=== PATIENT | female | born 1990 | race African-American/Black ===

== ENCOUNTER 2019-05-19 17:29 | Emergency (ER) | payer BC ==
[2019-05-19 17:42] VITALS: BMI 27.9
--- NOTE | 2019-05-19 17:43 | PDOC ---
Rapid Medical Evaluation Time Seen by Provider: 05/19/19 17:40 Medical Evaluation: 05/19/19 17:40 I have performed a brief in-person evaluation of this patient. The patient presents with a chief complaint of: "I think I am having a miscarriage". 13wks F w/ (+)lower abdominal cramping w/ vaginal bleeding started 2 hours ago, does not have a pad on. NO clots. LMP February 24. ( +)documented IUP yesterday, everything was ok. I have ordered the following: Labs, UA, TVS The patient will proceed to the ED for further evaluation. Discharge Disposition - Diagnosis Vaginal bleeding in - Referrals - Patient Instructions - Post Discharge Activity
[2019-05-19 18:27] LABS: BASO % 0.5 % (0-2.0); EOS % 1.3 % (0-4.5); HEMATOCRIT 34.9 % (32.4-45.2); HEMOGLOBIN 11.6 GM/dL (10.7-15.3); LYMPH % 21.5 % (8-40); MCHC 33.3 g/dl (32.0-36.0); MEAN PLT VOLUME 9.7 fl (7.5-11.1); MONO % 6.8 % (3.8-10.2); NEUT % 69.9 % (42.8-82.8); PLATELET COUNT 223 K/MM3 (134-434); RBC 3.87 M/mm3 (3.60-5.2); RDW 14.3 % (11.6-15.6); WHITE BLOOD COUNT 12.6 K/mm3 (4.0-10.0)
[2019-05-19 19:30] LABS: ALBUMIN 3.5 g/dl (3.4-5.0); BILIRUBIN,TOTAL 0.2 mg/dL (0.2-1); CALCIUM 8.3 mg/dL (8.5-10.1); CREATININE 0.6 mg/dL (0.55-1.3); POTASSIUM 3.8 mmol/L (3.5-5.1); TOT PROT 6.8 g/dl (6.4-8.2)
[2019-05-19] MEDS ORDERED: RHO(D) IMMUNE GLOBULIN 1,500 UNIT DISP.SYRIN IM ONE (20:04)
--- NOTE | 2019-05-19 20:13 | PDOC ---
History of Present Illness - General Chief Complaint: Vaginal Bleeding Stated Complaint: POSS MISCARRIAGE Time Seen by Provider: 05/19/19 17:40 History Source: Patient Exam Limitations: No Limitations - History of Present Illness Initial Comments: 05/19/19 20:06 28YOF who is (1 prior elective , and ~13 weeks by US and LMP) who p/w lower abdominal cramping and bright red vaginal bleeding without clots x a few hours. States she had a normal OB US performed yesterday showing in the uterus. She has required a Rhogam shot before for a prior . Denies any additional symptoms - no f/c/n/v/d/c, dysuria, or other symptoms. Past History - Past Medical History Allergies/Adverse Reactions: Allergies Allergy/AdvReac Type Severity Reaction Status Date / Time No Known Allergies Allergy Verified 05/19/19 17:42 Home Medications: Ambulatory Orders Cephalexin [Keflex] 500 mg PO BID #10 capsule 05/19/19 COPD: No - Psycho Social/Smoking Cessation Hx Smoking History: Never smoked Hx Alcohol Use: No Drug/Substance Use Hx: No Review of Systems - Review of Systems Able to Perform ROS?: Yes Comments:: 05/19/19 20:38 GEN: no fever, chills, night sweats, generalized weakness, malaise, or unintentional weight change HEENT: no ear pain, congestion, sore throat, rhinorrhea, nosebleed, vision change, or eye pain CV: no chest pain, palpitations, lightheadedness, syncope, edema, or exercise intolerance RESP: no cough, wheezing, or SOB GI: abdominal cramping, no nausea, vomiting, diarrhea, constipation, appetite change, or white/black/bloody stool : vaginal bleeding, no dysuria, frequency, incontinence, retention, pruritis, or discharge MSK: no muscle weakness or pain, no muscle wasting, no joint swelling or pain NEURO: no headache, seizure, vertigo, imbalance, numbness, tingling, focal weakness, or difficulty walking/talking PSYCH: no insomnia, behavior change, SI, HI, or substance use SKIN: no prutitis, excessive dryness, jaundice, rash, cuts, or unexplained bruises ROS otherwise negative except as noted in HPI *Physical Exam - Vital Signs Last Vital Signs Temp Pulse Resp BP Pulse Ox 98.1 F 85 16 112/72 100 05/19/19 17:39 05/19/19 17:39 05/19/19 17:39 05/19/19 17:39 05/19/19 17:39 - Physical Exam Comments: 05/19/19 20:39 GENERAL: well-appearing, A/Ox4, no distress, answers questions appropriately HEENT: PERRLA, EOMI, moist mucous membranes NECK/BACK: no midline ttp, no spinal stepoff or deformity, no hematoma, full ROM , neck supple CARDIOVASCULAR: regular rate/rhythm, normal S1S2, no MGR, strong peripheral pulses, capillary refill <2 seconds, extremities wwp, no edema LUNGS/RESPIRATORY: no respiratory distress, CTAB GI/ABDOMEN: symmetric shzp-py-zhed, normoactive BS, soft, minimal suprapubic ttp , no midline pulsatile masses : no CVA tenderness, pelvic normal externally, speculum with moderate medium red blood without clots, bimanual without tenderness but with soft cervix and fingertip os. EXTREMITIES: no muscle atrophy, no acute deformity SKIN: warm and dry, no pallor, no jaundice, no rash, no bruising, no skin breakdown, no cuts, no lesions NEUROLOGICAL: GCS 15, CN II-XII grossly intact, 5/5 strength proximally and distally, no facial droop ED Treatment Course - LABORATORY CBC & Chemistry Diagram: 05/19/19 17:59 05/19/19 17:59 - ADDITIONAL ORDERS Additional order review: Laboratory Results 05/19/19 05/19/19 17:59 17:59 Sodium 138 Potassium 3.8 Chloride 105 Carbon Dioxide 25 Anion Gap 9 BUN 9.0 Creatinine 0.6 Est GFR (CKD-EPI)AfAm 144.78 Est GFR (CKD-EPI)NonAf 124.92 Random Glucose 76 Calcium 8.3 L Total Bilirubin 0.2 AST 10 L ALT 13 Alkaline Phosphatase 59 Total Protein 6.8 Albumin 3.5 Beta HCG, Quant 213474.5 Blood Type O NEGATIVE Antibody Screen Negative 05/19/19 17:59 RBC 3.87 MCV 90.0 MCHC 33.3 RDW 14.3 MPV 9.7 Neutrophils % 69.9 Lymphocytes % 21.5 Monocytes % 6.8 Eosinophils % 1.3 Basophils % 0.5 Medical Decision Making - Medical Decision Making 05/19/19 20:41 First trimester female p/w vaginal bleeding and lower abdominal pain at 13 wks gestation. Initial Vital Signs Temp Pulse Resp BP Pulse Ox 98.1 F 85 16 112/72 100 05/19/19 17:39 05/19/19 17:39 05/19/19 17:39 05/19/19 17:39 05/19/19 17:39 Exam: As noted in Physical Exam section. DDX IBNLT: threatened/inevitable/incomplete/complete/septic , ectopic, PID, TOA/cervicitis, endometritis, ruptured ovarian cyst, ovarian torsion, malignancy, menorrhagia, endometriosis, rectal bleed, hematuria, constipation, fibroids, etc. W/U ordered: Labs as noted below, TVUS. TX ordered: None initially Laboratory Tests 05/19/19 05/19/19 05/19/19 17:59 17:59 17:59 WBC 12.6 H RBC 3.87 Hgb 11.6 Hct 34.9 MCV 90.0 MCH 30.0 MCHC 33.3 RDW 14.3 Plt Count 223 MPV 9.7 Absolute Neuts (auto) 8.8 H Neutrophils % 69.9 Lymphocytes % 21.5 Monocytes % 6.8 Eosinophils % 1.3 Basophils % 0.5 Nucleated RBC % 0 Sodium 138 Potassium 3.8 Chloride 105 Carbon Dioxide 25 Anion Gap 9 BUN 9.0 Creatinine 0.6 Est GFR (CKD-EPI)AfAm 144.78 Est GFR (CKD-EPI)NonAf 124.92 Random Glucose 76 Calcium 8.3 L Total Bilirubin 0.2 AST 10 L ALT 13 Alkaline Phosphatase 59 Total Protein 6.8 Albumin 3.5 Beta HCG, Quant 870685.5 Urine Color Urine Appearance Urine pH Ur Specific Sarles Urine Protein Urine Glucose (UA) Urine Ketones Urine Blood Urine Nitrite Urine Bilirubin Urine Urobilinogen Ur Leukocyte Esterase Urine WBC (Auto) Urine RBC (Auto) Urine Casts (Auto) U Epithel Cells (Auto) Urine Bacteria (Auto) Blood Type O NEGATIVE Antibody Screen Negative Unit Expiration Date 8999080205/19/19 21:00 WBC RBC Hgb Hct MCV MCH MCHC RDW Plt Count MPV Absolute Neuts (auto) Neutrophils % Lymphocytes % Monocytes % Eosinophils % Basophils % Nucleated RBC % Sodium Potassium Chloride Carbon Dioxide Anion Gap BUN Creatinine Est GFR (CKD-EPI)AfAm Est GFR (CKD-EPI)NonAf Random Glucose Calcium Total Bilirubin AST ALT Alkaline Phosphatase Total Protein Albumin Beta HCG, Quant Urine Color Red Urine Appearance Turbid Urine pH 6.0 Ur Specific Sar[place] 1.028 Urine Protein 3+ H Urine Glucose (UA) Negative Urine Ketones Negative Urine Blood 3+ H Urine Nitrite Positive H Urine Bilirubin 2+ H Urine Urobilinogen 0.2 Ur Leukocyte Esterase 2+ H Urine WBC (Auto) 2 Urine RBC (Auto) 5016 Urine Casts (Auto) 142 U Epithel Cells (Auto) 8.4 Urine Bacteria (Auto) 14.6 Blood Type Antibody Screen Unit Expiration Date The Pt require Rhogam and is given this dose after second T&S shows O- blood type. She has a UTI and is given first dose Keflex, remainder sent to her pharmacy. Workup is not concerning for emergency-level pathology at this time. The Pt is appropriate for discharge home w/ close outpatient f/u. The Pt is comfortable with this plan and will follow up with their primary care provider in 1-3 days. She will also follow up with her on Wednesday (pt states has [facility] already in [place] where she lives). She will take primarily Tylenol for pain. Specific return precautions are discussed and they will come back to the ER if necessary. Discharge - Discharge Information Problems reviewed: Yes Clinical Impression/Diagnosis: Vaginal bleeding in , Threatened Condition: Stable Disposition: HOME - Admission No - Additional Discharge Information Prescriptions: Cephalexin [Keflex] 500 mg PO BID #10 capsule - Follow up/Referral - Patient Discharge Instructions Patient Printed Discharge Instructions: DI for Vaginal Bleeding During Additional Instructions: You were seen in the ER for vaginal bleeding in . We did an exam, laboratory work on your blood and urine, and an ultrasound. After our assessment , we believe you are having what is called a "threatened miscarriage" which means there is some risk that a miscarriage will happen, but for now the is viable and the heart rate was normal. We gave you the Rhogam shot that you needed because of your blood type and the bleeding in . You are not having a medical emergency at this time, and you are safe to go home. Please take Tylenol for any mild-moderate pain. 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 Call their clinic [facility], tell them you were seen in the ER, and tell them you need an appointment. Please come back to the ER at any time (24 hours a day) for any new or worsening symptoms, like worsening pelvic pain, discharge, high fever, headache, seizure, fainting, anemia, large amount of blood loss, or other symptoms. If you are having severe or life threatening symptoms, or symptoms that make it unsafe to drive or have someone drive you, please call 911. You have a bladder infection as well, and we gave you the first dose of antibiotics here and sent the remaining prescription to the pharmacy. Please pick it up and take the course as prescribed, and finish it whether or not you feel better. - Post Discharge Activity
--- NOTE | 2019-05-19 20:14 | PDOC ---
Attending Attestation - Resident Resident Name: Cathie Frost - ED Attending Attestation I have performed the following: I have examined & evaluated the patient, The case was reviewed & discussed with the resident, I agree w/resident's findings & plan - HPI HPI: 05/19/19 20:37 Pt was upgraded to the ER from fast track. Onegative patient who is vag bleeding in her 13th week of . She is A1 in the past - 6 yrs ago Pt had a normal US yesterday; she went for a baby prescreening at her clinic/ [facility] in [facility]. - Physicial Exam PE: 05/19/19 20:39 Os is open to fingertip. Pt has some small active bleeding in the vag vault. Pt has slight cramping Exam otherwise normal - Medical Decision Making 05/19/19 20:40 Pt has normal labs; she will get Rhogam here We are still awaiting UA results. 05/19/19 23:43 UA nitrite positive and she will be treated and asked to follow with PMD; Pt received her blood products
[2019-05-19 21:50] LABS: EPI CELLS 8.4 /HPF (0-5/HPF); HYALINE CASTS 142 /lpf (0-8); URINE APPEARANCE TURBID; URINE BACTERIA 14.6 /hpf (NEGATIVE); URINE BILIRUBIN 2+ (NEGATIVE); URINE COLOR RED; URINE GLUCOSE (UA) NEGATIVE (NEGATIVE); URINE KETONE NEGATIVE (NEGATIVE); URINE LEUK ESTERASE 2+ (NEGATIVE); URINE NITRITE POSITIVE (NEGATIVE); URINE PROTEIN 3+ (NEGATIVE); URINE RBC 5016 /hpf (0-4); URINE UROBILINOGEN 0.2 mg/dL (0.2-1.0); URINE WBC 2 /hpf (0-5)
[2019-05-19] MEDS ORDERED: CEPHALEXIN MONOHYDRATE 500 MG CAPSULE (UD) PO ONE (21:51)
[2019-05-19] MEDS ORDERED: CEPHALEXIN MONOHYDRATE 500 MG CAPSULE (UD) ONE (23:31)
[2019-05-20 04:34] VITALS: BP 110/73; PULSE 80; TEMP 98.3
== END 2019-05-19 23:33 | disposition home or self-care (01) ==
LOC: JER 17:29
PROC: 3E023GC Introduction of Other Therapeutic Substance into Muscle, Percutaneous Approach (ICD-10-PCS; principal; 2019-05-19)
DX: O20.0 Threatened abortion (principal); Z3A.19 19 weeks gestation of pregnancy; N93.9 Abnormal uterine and vaginal bleeding, unspecified
CPT/HCPCS: 36415; 76801-TC; 80053; 81003; 84702; 85025; 86850; 86900; 86901; 86999; 87086; 99283-25; J1561

== ENCOUNTER 2019-05-22 20:44 | Emergency (ER) | payer BC ==
[2019-05-22 21:03] VITALS: BP 127/64; PULSE 69; TEMP 98.8; BMI 27.9
--- NOTE | 2019-05-22 21:06 | PDOC ---
Rapid Medical Evaluation Chief Complaint: Revisit, Lab Variance Time Seen by Provider: 05/22/19 21:01 Medical Evaluation: Allergies Allergy/AdvReac Type Severity Reaction Status Date / Time No Known Allergies Allergy Verified 05/19/19 17:42 Vital Signs Temp Pulse Resp BP Pulse Ox 98.8 F 69 18 127/64 98 05/22/19 21:01 05/22/19 21:01 05/22/19 21:01 05/22/19 21:01 05/22/19 21:01 05/22/19 21:03 I have performed a brief in-person evaluation of this patient. The patient presents with a chief complaint of: 13wks present for repeat beta hcg s/p presenting 3 days ago with vaginal spotting. Pt report no more vaginal bleeding or abd pains since last visit Pertinent physical exam findings: A&O x 3 in NAD I have ordered the following: beta hcg The patient will proceed to the ED for further evaluation. Discharge Disposition - Diagnosis Threatened , Second trimester - Discharge Dispostion Condition at time of disposition: Stable - Referrals - Patient Instructions - Post Discharge Activity
--- NOTE | 2019-05-22 21:48 | PDOC ---
History of Present Illness - General Chief Complaint: Revisit, Lab Variance Stated Complaint: F/U THREATENING MISCARRIAGE Time Seen by Provider: 05/22/19 21:01 - History of Present Illness Initial Comments: 05/22/19 21:47 28YOF who is (1 prior elective , and ~13 weeks by US and LMP) received. [place]arham on 05/19/2019. patient was advised to return for follow up beta hcg and US. denies vaginal bleeding now, reports that it stopped this morning. denies pain, dysuria, fever/ chills Past History - Past Medical History Allergies/Adverse Reactions: Allergies Allergy/AdvReac Type Severity Reaction Status Date / Time No Known Allergies Allergy Verified 05/19/19 17:42 Home Medications: Ambulatory Orders Cephalexin [Keflex] 500 mg PO BID #10 capsule 05/19/19 COPD: No - Psycho Social/Smoking Cessation Hx Smoking History: Never smoked Hx Alcohol Use: No Drug/Substance Use Hx: No Review of Systems - Review of Systems Able to Perform ROS?: Yes Is the patient limited Macedonian proficient: No Constitutional: No: Symptoms Reported, See HPI, Chills, Diaphoresis, Fever, Loss of Appetite, Malaise, Night Sweats, Weakness, Weight Stable, Unintentional Wgt. Loss, Unexplained wgt Loss, Other : Yes: Other (vaginal bleeding) *Physical Exam - Vital Signs Last Vital Signs Temp Pulse Resp BP Pulse Ox 98.8 F 69 18 127/64 98 05/22/19 21:01 05/22/19 21:01 05/22/19 21:01 05/22/19 21:01 05/22/19 21:01 - Physical Exam General Appearance: Yes: Appropriately Dressed Respiratory/Chest: positive: Lungs Clear, Normal Breath Sounds Gastrointestinal/Abdominal: positive: Normal Bowel Sounds, Soft. negative: Tender Integumentary: positive: Normal Color, Dry, Warm Neurologic: positive: Fully Oriented, Alert Medical Decision Making - Medical Decision Making 05/22/19 23:16 A: threatened P: beta hcg [id number] 05/23/19 00:41 Ultrasound :Uterus is anteverted and measures 13.1centimeters in length. There is a single live IUP with estimated gestational age of 13weeks and 3days. There is a normal heart rate of 129beats per minute. There is no subchorionic bleed. The right ovary measures 4.7centimeters in length and contains a 2.9 cm cyst, possibly the corpus luteum. The left ovary measures 3.3centimeters in length and appears normal. There is no significant free fluid. Cervix is 4.7 cm in length and closed. 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 will follow up as per patient Discharge - Discharge Information Problems reviewed: Yes Clinical Impression/Diagnosis: Threatened , Second trimester Condition: Stable - Follow up/Referral - Patient Discharge Instructions Patient Printed Discharge Instructions: Vaginal Bleeding During Additional Instructions: Return to the ER if you are soaking 2 pads per hour, severe abdominal pain, or worsening symptoms. follow up with your doctor as soon as possible. - Post Discharge Activity Work/Back to School Note: Back to Work
== END 2019-05-23 00:53 | disposition home or self-care (01) ==
LOC: JER 20:44
DX: O26.891 Other specified pregnancy related conditions, first trimester (principal); O20.0 Threatened abortion; Z3A.13 13 weeks gestation of pregnancy
CPT/HCPCS: 36415; 76801-TC; 84702; 99282-25